=== PATIENT | male | born 1985 | race Caucasian/White ===

== ENCOUNTER 2023-09-09 15:44 | Emergency (ER) | payer BC ==
[~2023-09-09] VITALS: Ht 170.2 cm; Wt 80.3 kg
[2023-09-09 16:09] VITALS: BP 116/76; PULSE 89; RESP 18; TEMP 98.6; O2SAT 98
[2023-09-09] MEDS: ONDANSETRON 4 MG/2 ML VIAL IVP ONE (17:36)
[2023-09-09] MEDS: KETOROLAC 30 MG/ML VIAL IVP ONE (17:37)
[2023-09-09] MEDS: NACL 0.9% 1,000 ML IV ONE (17:41)
[2023-09-09] MEDS ORDERED: ONDA8TAB87 PO (18:13)
[2023-09-09] MEDS ORDERED: CIPR500T4 PO (18:13)
[2023-09-09] MEDS ORDERED: IBUP-2213 PO (18:13)
[2023-09-09 18:25] VITALS: BP 113/74; PULSE 18; RESP 16; O2SAT 99
== END 2023-09-09 18:25 | disposition home or self-care (01) ==
LOC: MED 15:44
DX: R10.13 Epigastric pain (principal); R11.2 Nausea with vomiting, unspecified; R42 Dizziness and giddiness; F12.90 Cannabis use, unspecified, uncomplicated
CPT/HCPCS: 96361; 96374; 96375; 99284; J1885; J2405; J7030

== ENCOUNTER 2024-01-01 19:36 | Emergency (ER) | payer BC ==
[~2024-01-01] VITALS: Ht 170.2 cm; Wt 79.4 kg
[~2024-01-01 19:36] MED LIST: CIPR500T4 PO; IBUP-2213 PO; ONDA8TAB87 PO
[2024-01-01 20:03] VITALS: BP 118/82; PULSE 84; RESP 16; TEMP 98.2; O2SAT 99
[2024-01-01] MEDS: KETOROLAC 30 MG/ML VIAL IM ONE (21:00)
[2024-01-01] MEDS ORDERED: IBUP-2213 PO (23:41)
[2024-01-01] MEDS ORDERED: METH-1681 PO (23:41)
[2024-01-01] MEDS ORDERED: LID5T TP (23:41)
[2024-01-01 23:47] VITALS: BP 117/80; PULSE 78; RESP 16; TEMP 98.2; O2SAT 99
== END 2024-01-01 23:47 | disposition home or self-care (01) ==
LOC: MED 19:36
DX: S16.1XXA Strain of muscle, fascia and tendon at neck level, initial encounter (principal); S39.012A Strain of muscle, fascia and tendon of lower back, initial encounter; S70.02XA Contusion of left hip, initial encounter; K21.9 Gastro-esophageal reflux disease without esophagitis; Z79.1 Long term (current) use of non-steroidal anti-inflammatories (NSAID); Z79.2 Long term (current) use of antibiotics; Z79.899 Other long term (current) drug therapy; V43.52XA Car driver injured in collision with other type car in traffic accident, initial encounter; Y93.89 Activity, other specified; Y92.411 Interstate highway as the place of occurrence of the external cause; Y99.8 Other external cause status
CPT/HCPCS: 72110; 72170; 96372; 99284; J1885